=== PATIENT | male | born 1970 | race Caucasian/White ===

== ENCOUNTER 2023-11-18 22:12 | Emergency (ER) | payer SELFPAY ==
[~2023-11-18] VITALS: Ht 175.3 cm; Wt 73.5 kg
[2023-11-18 22:20] VITALS: BP 144/94; PULSE 72; RESP 16; TEMP 98; O2SAT 98
[2023-11-19] MEDS: BACITRACIN OINT 500 UNITS/GM PKT TP ONE (01:26)
[2023-11-19] MEDS: KETOROLAC 60 MG/2 ML VIAL IM ONE (01:27)
[2023-11-19] MEDS: LIDOCAINE MPF 1% 10 MG/ML VIAL INJ ONE (01:28)
[2023-11-19] MEDS ORDERED: IBUP-2213 PO (01:32)
[2023-11-19 01:50] VITALS: BP 130/80; PULSE 72; RESP 16; TEMP 98; O2SAT 98
== END 2023-11-19 01:39 | disposition home or self-care (01) ==
LOC: MED 22:12
DX: S01.81XA Laceration without foreign body of other part of head, initial encounter (principal); R03.0 Elevated blood-pressure reading, without diagnosis of hypertension; W22.8XXA Striking against or struck by other objects, initial encounter; Y93.89 Activity, other specified; Y92.89 Other specified places as the place of occurrence of the external cause; Y99.8 Other external cause status
CPT/HCPCS: 12013; 96372; 99283; J1885; J2003